=== PATIENT | female | born 1985 | race Caucasian/White ===

== ENCOUNTER 2018-01-31 03:02 | Inpatient (IN) | payer OTHER ==
[~2018-01-31] VITALS: Ht 160 cm; Wt 67.8 kg
[2018-01-31 03:49] LABS: BASOPHIL % 0.6 % (0-2); PLATELET COUNT 176 x10^3mcL (130-400)
[2018-01-31 03:53] LABS: RED CELL DISTRIBUTION WIDTH 17.8 % (11.5-14.5)
[2018-01-31 04:01] LABS: CALCIUM 8.8 mg/dL (8.5-10.1); CARBON DIOXIDE 26.8 mmol/L (21-32); CHLORIDE SERUM 102 mmol/L (98-107); CREATININE SERUM 0.9 mg/dL (0.6-1.0); GFR1 > 60 mL/min; GLUCOSE SERUM 100 mg/dL (74-106); POTASSIUM SERUM 3.5 mmol/L (3.5-5.1); SODIUM SERUM 136 mmol/L (136-145)
[2018-01-31 04:05] LABS: ALBUMIN 4.1 g/dL (3.4-5.0); ALKALINE PHOSPHATASE 62 U/L (46-116); ALT/SGPT 50 U/L (14-59); AMYLASE 91 U/L (25-115); AST/SGOT 22 U/L (15-37); BILIRUBIN TOTAL 0.36 mg/dL (0.20-1.00); LIPASE 241 IU/L (73-393); TOTAL PROTEIN, SERUM 7.1 g/dL (6.4-8.2)
[2018-01-31 04:15] LABS: microscopic required? YES; urine erythrocyte 1+ (NEGATIVE)
[2018-01-31] MEDS ORDERED: PROVERA10 MG PO (04:59)
[2018-01-31 05:43] LABS: CHOLESTEROL/HDL RATIO 3.4; MAGNESIUM 1.9 mg/dL (1.8-2.4); PHOSPHOROUS 4.5 mg/dL (2.5-4.9)
[2018-01-31 05:46] LABS: FREE T4 0.96 ng/dL (0.76-1.46); FREE THYROXINE INDEX 2.6 ug/dL (1.4-4.5); T4(THYROXINE) 7.8 ug/dL (4.7-13.3)
[2018-01-31 05:47] LABS: T3 TOTAL 1.24 ng/mL
[2018-01-31 06:18] VITALS: BP 113/62
[2018-01-31 09:09] VITALS: BP 114/63
[2018-01-31 16:28] VITALS: BP 101/55
[2018-02-01 05:59] VITALS: BP 96/50
[2018-02-01 06:10] LABS: BASOPHIL % 0.6 % (0-2); PLATELET COUNT 156 x10^3mcL (130-400)
[2018-02-01 06:42] LABS: CALCIUM 7.6 mg/dL (8.5-10.1); CARBON DIOXIDE 23.8 mmol/L (21-32); CHLORIDE SERUM 109 mmol/L (98-107); CREATININE SERUM 0.7 mg/dL (0.6-1.0); GFR1 > 60 mL/min; GLUCOSE SERUM 79 mg/dL (74-106); PHOSPHOROUS 3.6 mg/dL (2.5-4.9); POTASSIUM SERUM 3.6 mmol/L (3.5-5.1); SODIUM SERUM 142 mmol/L (136-145)
[2018-02-01 06:45] LABS: RED CELL DISTRIBUTION WIDTH 17.1 % (11.5-14.5)
[2018-02-01 07:06] VITALS: BP 100/54
[2018-02-01 09:10] VITALS: BP 101/67
[2018-02-01 12:13] VITALS: BP 108/53
[2018-02-01 16:17] VITALS: BP 109/64
[2018-02-01 21:35] VITALS: BP 108/63
[2018-02-02 05:31] VITALS: BP 99/56
[2018-02-02 05:37] LABS: BASOPHIL % 0.2 % (0-2); PLATELET COUNT 170 x10^3mcL (130-400)
[2018-02-02 05:38] LABS: RED CELL DISTRIBUTION WIDTH 16.5 % (11.5-14.5)
[2018-02-02 06:05] LABS: CALCIUM 8.4 mg/dL (8.5-10.1); CARBON DIOXIDE 25.4 mmol/L (21-32); CHLORIDE SERUM 104 mmol/L (98-107); CREATININE SERUM 0.7 mg/dL (0.6-1.0); GFR1 > 60 mL/min; GLUCOSE SERUM 86 mg/dL (74-106); MAGNESIUM 2.1 mg/dL (1.8-2.4); PHOSPHOROUS 3.6 mg/dL (2.5-4.9); POTASSIUM SERUM 3.9 mmol/L (3.5-5.1); SODIUM SERUM 139 mmol/L (136-145)
[2018-02-02 09:38] VITALS: BP 112/59
[2018-02-02 16:41] VITALS: BP 118/65
[2018-02-02 20:36] VITALS: BP 106/55
[2018-02-03 06:32] LABS: CALCIUM 8.1 mg/dL (8.5-10.1); CARBON DIOXIDE 27.2 mmol/L (21-32); CHLORIDE SERUM 107 mmol/L (98-107); CREATININE SERUM 0.7 mg/dL (0.6-1.0); GFR1 > 60 mL/min; GLUCOSE SERUM 86 mg/dL (74-106); MAGNESIUM 1.9 mg/dL (1.8-2.4); PHOSPHOROUS 3.5 mg/dL (2.5-4.9); POTASSIUM SERUM 3.7 mmol/L (3.5-5.1); SODIUM SERUM 142 mmol/L (136-145)
[2018-02-03 07:21] LABS: BASOPHIL % 0.5 % (0-2); PLATELET COUNT 161 x10^3mcL (130-400)
[2018-02-03 07:26] LABS: RED CELL DISTRIBUTION WIDTH 16.7 % (11.5-14.5)
[2018-02-03 09:07] VITALS: BP 103/53
[2018-02-03 17:14] VITALS: BP 94/55
[2018-02-03 21:01] VITALS: BP 106/64
[2018-02-04 05:36] VITALS: BP 114/54
[2018-02-04 08:43] VITALS: BP 104/55
[2018-02-04 17:22] VITALS: BP 109/64
[2018-02-04 21:05] VITALS: BP 102/63
[2018-02-05 05:26] VITALS: BP 101/55
[2018-02-05 09:20] VITALS: BP 99/48
[2018-02-05] MEDS ORDERED: LAC30L PO (11:47)
[2018-02-05] MEDS ORDERED: NORCO1 TA2 PO (11:47)
[2018-02-05 11:58] VITALS: BP 99/48
== END 2018-02-05 15:12 | disposition home or self-care (01) | DRG 263 ==
LOC: ED 03:02 → MU 05:08 → ED 05:30 → MU 06:22
PROVIDERS: Emergency Medicine; Family Medicine
PROC: 0FT44ZZ Resection of Gallbladder, Percutaneous Endoscopic Approach (ICD-10-PCS; principal; 2018-01-31)
DX: K80.42 Calculus of bile duct with acute cholecystitis without obstruction (principal); N39.0 Urinary tract infection, site not specified; Z87.891 Personal history of nicotine dependence; Z98.891 History of uterine scar from previous surgery; Z88.8 Allergy status to other drugs, medicaments and biological substances; Z91.040 Latex allergy status
CPT/HCPCS: 83880; 84439; 94150; J0690; J0696; J1170; J1885; J2250; J2270; J2405; J3010; J3490; J7030; Q0092; Q0162

== ENCOUNTER 2018-02-17 17:11 | Emergency (ER) | payer OTHER ==
[~2018-02-17] VITALS: Ht 172.7 cm; Wt 65.8 kg
[~2018-02-17 17:11] MED LIST: LAC30L PO; NORCO1 TA2 PO; PROVERA10 MG PO
[2018-02-17 17:25] VITALS: Ht 172.7 cm; Wt 65.8 kg
[2018-02-17 20:49] VITALS: BP 120/61
== END 2018-02-17 18:45 | disposition home or self-care (01) ==
LOC: ED 17:11
DX: Z48.02 Encounter for removal of sutures (principal); Z90.49 Acquired absence of other specified parts of digestive tract; Z88.8 Allergy status to other drugs, medicaments and biological substances; Z91.040 Latex allergy status; Z91.048 Other nonmedicinal substance allergy status